=== PATIENT | male | born 1970 | race Caucasian/White ===

== ENCOUNTER 2018-08-23 05:20 | Inpatient (IN) | payer OTHER ==
[2018-08-23] MEDS ORDERED: THROMBIN 5000 UNIT VIAL (06:59)
[2018-08-23] MEDS ORDERED: SUCCINYLCHOLINE CHLORIDE 100 MG/5 ML SYG IV (07:00)
[2018-08-23] MEDS ORDERED: LIDOCAINE 2% (SDV) 5 ML INJ (07:00)
[2018-08-23] MEDS ORDERED: ROCURONIUM 50 MG INJ ×2 (07:00→07:41)
[2018-08-23] MEDS ORDERED: GELATIN SIZE 100 SPONGE (07:00)
[2018-08-23] MEDS ORDERED: CEFAZOLIN 1 GM INJ ×2 (07:00→07:18)
[2018-08-23] MEDS ORDERED: MIDAZOLAM 1 MG/ML 2 ML INJ (07:00)
[2018-08-23] MEDS ORDERED: CEFAZOLIN 1 GM/50 ML (PMX) 50 ML IVPB (07:00)
[2018-08-23] MEDS ORDERED: SEVOFLURANE 15 MIN (07:00)
[2018-08-23] MEDS ORDERED: PROPOFOL 20 ML ×2 (07:00→07:18)
[2018-08-23] MEDS: CEFAZOLIN 2 GM/50 ML (PMX) 50 ML IVPB (07:32)
[2018-08-23] MEDS ORDERED: ONDANSETRON 4 MG INJ (07:40)
[2018-08-23] MEDS ORDERED: FAMOTIDINE 20 MG INJ (07:40)
[2018-08-23] MEDS ORDERED: DEXAMETHASONE 4 MG/ML 5 ML INJ (07:40)
[2018-08-23] MEDS: POLYMYXIN/BACITRACIN 1L IRRIG (08:14)
[2018-08-23] MEDS: BUPIVACAINE 0.25% (MPF) 30 ML INJ (08:15)
[2018-08-23] MEDS ORDERED: EPHEDrine 25 MG/5 ML SYG (08:18)
[2018-08-23] MEDS ORDERED: hydrALAzine 20 MG INJ (09:58)
[2018-08-23] MEDS ORDERED: ESMOLOL 10 ML (10:00)
[2018-08-23] MEDS ORDERED: HYDROmorphONE 2 MG/ML SYG (10:59)
[2018-08-23] MEDS ORDERED: ZOLPIDEM 5 MG TAB PO (13:00)
[2018-08-23] MEDS ORDERED: BETHANECHOL 25 MG TAB PO (13:00)
[2018-08-23] MEDS ORDERED: HYDROCODONE/APAP (5/325) TAB PO (13:00)
[2018-08-23] MEDS ORDERED: ONDANSETRON 4 MG INJ IV (13:00)
[2018-08-23] MEDS ORDERED: HYDROmorphONE 1 MG/5 ML IV SYRINGE IV ×3 (13:00)
[2018-08-23] MEDS ORDERED: hydrALAzine 20 MG INJ IV (13:00)
[2018-08-23] MEDS ORDERED: LABETALOL HCL 20MG INJ IV (13:00)
[2018-08-23] MEDS ORDERED: NACL 0.9% 3 ML SYG IV (13:00)
[2018-08-23] MEDS ORDERED: PROCHLORPERAZINE 10 MG INJ IV (13:00)
[2018-08-23] MEDS ORDERED: DIPHENHYDRAMINE 50 MG INJ IV (13:00)
[2018-08-23] MEDS ORDERED: EPHEDrine SULFATE 50 MG/5 ML SYG IV (13:00)
[2018-08-23] MEDS ORDERED: AL HYDROX/MG HYDROX/SIMETH 30 ML CUP PO (13:00)
[2018-08-23] MEDS ORDERED: ACETAMINOPHEN 325 MG TAB PO (13:00)
[2018-08-23] MEDS ORDERED: DIAZEPAM 5 MG/ML SYG IM (13:00)
[2018-08-23] MEDS ORDERED: FENTAnyl 50 MCG/ML VIAL IV (13:00)
[2018-08-23] MEDS ORDERED: PROCHLORPERAZINE 10 MG TAB PO (13:00)
[2018-08-23] MEDS ORDERED: NALOXONE (0.4 MG/ML) INJ IV (13:00)
[2018-08-23] MEDS ORDERED: TRIMETHOBENZAMIDE 100 MG/ML VIAL IM (13:00)
[2018-08-23] MEDS ORDERED: DIPHENHYDRAMINE 50 MG CAP PO (13:00)
[2018-08-23] MEDS: MEPERIDINE 25 MG INJ IV (13:02)
[2018-08-23] MEDS: ONDANSETRON 4 MG INJ IV (13:02)
[2018-08-23] MEDS: HYDROmorphONE 0.2 MG/ML PCA IV ×2 (13:03→20:15)
[2018-08-23] MEDS: CEFAZOLIN 1 GM/50 ML (PMX) 50 ML IVPB ×2 (15:24→20:06)
[2018-08-23] MEDS: DIAZEPAM 5 MG TAB PO ×2 (15:24→20:06)
[2018-08-23] MEDS: CEPASTAT LOZENGE MT (15:24)
[2018-08-23] MEDS: DEXTROSE 5%-0.45% NACL 1,000 ML IV ×3 (17:44→22:38)
[2018-08-23] MEDS: RANITIDINE 150 MG TAB PO (20:06)
[2018-08-24] MEDS: CEFAZOLIN 1 GM/50 ML (PMX) 50 ML IVPB ×2 (02:09→08:37)
[2018-08-24] MEDS: HYDROmorphONE 0.2 MG/ML PCA IV (04:13)
[2018-08-24 05:32] LABS: HEMATOCRIT 37.1 % (42.0-52.0)
[2018-08-24 06:06] LABS: ANION GAP 6 (5-13); BLOOD UREA NITROGEN 13 mg/dl (7-20); CALCIUM 8.4 mg/dl (8.4-10.2); CARBON DIOXIDE 28 mmol/L (21-31); CHLORIDE 104 mmol/L (97-110); CREATININE 0.88 mg/dl (0.61-1.24); Estimated GFR > 60 mL/min (>60); GLUCOSE 94 mg/dl (70-220); SODIUM 138 mmol/L (135-144)
[2018-08-24] MEDS: BETHANECHOL 25 MG TAB PO (08:38)
[2018-08-24] MEDS: RANITIDINE 150 MG TAB PO ×2 (08:38→21:49)
[2018-08-24] MEDS: FERROUS SULFATE (EC) 325 MG TAB PO ×3 (08:38→21:49)
[2018-08-24] MEDS: DEXTROSE 5%-0.45% NACL 1,000 ML IV (08:38)
[2018-08-24] MEDS: DOCUSATE SODIUM 100 MG CAP PO ×2 (08:38→21:50)
[2018-08-24] MEDS: ASCORBIC ACID 500 MG TAB PO ×2 (08:38→21:49)
[2018-08-24 09:48] LABS: ADD UMIC YES; UR ASCORBIC ACID NEGATIVE (NEGATIVE); UR BACTERIA FEW /HPF (NONE SEEN); UR BILIRUBIN (Dip) NEGATIVE (NEGATIVE); UR BLOOD (Dip) 2+ mg/dL (NEGATIVE); UR CLARITY CLEAR (CLEAR); UR COLOR STRAW (YELLOW); UR GLUCOSE (Dip) NEGATIVE (NEGATIVE); UR KETONES (Dip) NEGATIVE (NEGATIVE); UR LEUKOCYTE ESTERASE (Dip) 2+ Leu/ul (NEGATIVE); UR MUCUS FEW /HPF (NONE SEEN); UR NITRITE (Dip) NEGATIVE (NEGATIVE); UR RBC 2 /HPF (0-5); UR SPECIFIC GRAVITY (Dip) 1.004 (1.003-1.030); UR TOTAL PROTEIN (Dip) NEGATIVE (NEGATIVE); UR UROBILINOGEN (Dip) NEGATIVE (NEGATIVE); UR WBC 5 /HPF (0-5)
[2018-08-24] MEDS: HYDROCODONE/APAP (5/325) TAB PO ×3 (12:07→21:56)
[2018-08-24] MEDS: DIAZEPAM 5 MG TAB PO (15:21)
[2018-08-25] MEDS: HYDROCODONE/APAP (5/325) TAB PO ×2 (05:52→10:03)
[2018-08-25] MEDS: DOCUSATE SODIUM 100 MG CAP PO (09:26)
[2018-08-25] MEDS: RANITIDINE 150 MG TAB PO (09:26)
[2018-08-25] MEDS: FERROUS SULFATE (EC) 325 MG TAB PO (09:26)
[2018-08-25] MEDS: ASCORBIC ACID 500 MG TAB PO (09:26)
== END 2018-08-25 12:42 | disposition home or self-care (01) | DRG 460 ==
LOC: REC 05:20 → MS1 14:00
PROC: 0SG30AJ Fusion of Lumbosacral Joint with Interbody Fusion Device, Posterior Approach, Anterior Column, Open Approach (ICD-10-PCS; principal; 2018-08-23 07:00)
PROC: 0SB40ZZ Excision of Lumbosacral Disc, Open Approach (ICD-10-PCS; 2018-08-23 07:00)
PROC: 4A11X4G Monitoring of Peripheral Nervous Electrical Activity, Intraoperative, External Approach (ICD-10-PCS; 2018-08-23 07:00)
DX: M43.16 Spondylolisthesis, lumbar region (principal); M48.061 Spinal stenosis, lumbar region without neurogenic claudication; M51.87 Other intervertebral disc disorders, lumbosacral region; F17.200 Nicotine dependence, unspecified, uncomplicated; R06.2 Wheezing
CPT/HCPCS: 72110; 80048; 81001; 85014; 85018; 86850; 86900; 86901; 86920; 87086; 88304; 97116; 97161; 97530; C9359